=== PATIENT | male | born 2005 | race Two or more races ===

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

== ENCOUNTER 2024-09-09 10:07 | Emergency (ER) | payer SELFPAY ==
[~2024-09-09] VITALS: Ht 182.9 cm; Wt 133.6 kg
[~2024-09-09 10:07] MED LIST: IBUP-1454 PO; ONDA-144 PO
[2024-09-09] MEDS ORDERED: CEPH500C PO (10:40)
[2024-09-09 10:45] VITALS: BP 136/96; PULSE 83; RESP 16; TEMP 98.7; O2SAT 96
--- NOTE | 2024-09-09 10:49 | ED.PDOC ---
Musculoskeletal HPI Comments 18 y.o male presents to the ED for a chief complaint of right foot swelling associated with right sided calf cramping that started 2 days ago. Patient reports symptoms presented spontaneously without any recent injuries or trauma. Patient mentions being on his feet for long periods of time at work and believed it was due to his shoes. Patient denies any fever, open wounds, or abrasion to swelling or pain site. Patient denies any medical history or allergies. Chief Complaint: Lower Extremity Time Seen by MD: 10:37 Primary Care Provider: BARBER Romero Notes: Nurses Notes, Medications, Allergies Allergies: Coded Allergies: NO KNOWN ALLERGIES (Unverified , 05/18/18) Home Meds Active Scripts Cephalexin Monohydrate (Cephalexin) 500 Mg Cap, 1 CAP PO QID, #40 CAP Prov:NATE KAUFMAN MD 09/09/24 Ibuprofen (Ibuprofen) 600 Mg Tab, 600 MG PO Q6HP PRN, #24 TAB Prov:JOHN CLIFTON 08/27/21 Ondansetron (Zofran) 4 Mg Tab, 4 MG PO BID, #14 TAB Prov:JOHN CLIFTON 08/27/21 Information Source: Patient Mode of Arrival: Ambulatory Location: Right Extremity Location: Calf, Foot Timing: Days (2) Severity: Moderate Able to Move Extremity: Yes Bear Weight: Limited Pain: Moderate Mechanism: None Circumstances: Unknown Symptoms: Swelling, Pain, Erythema DVT Risk Factors: NONE Associated signs and symptoms: Swelling, Other (right calf pain ) Past Medical History PAST MEDICAL HISTORY: Denies Surgical History: Denies all surgeries Family History Family History: Family hx of DM Social History Smoker: Non-Smoker Alcohol: Denies ETOH Use Drugs: Denies Drug Use Lives In: Home Constitutional: denies: chills, diaphoresis, fatigue, fever, malaise, sweats, weakness, others EENTM: denies: blurred vision, double vision, ear bleeding, ear discharge, ear drainage, ear pain, ear ringing, eye pain, eye redness, hearing loss, mouth pain, mouth swelling, nasal discharge, nose bleeding, nose congestion, nose pain, photophobia, tearing, throat pain, throat swelling, voice changes, others Respiratory: denies: cough, hemoptysis, orthopnea, SOB at rest, shortness of breath, SOB with excertion, stridor, wheezing, others Cardiovascular: denies: chest pain, dizzy spells, diaphoresis, Dyspnea on exertion, edema, irregular heart beat, left arm pain, lightheadedness, palpitations, PND, syncope, others Gastrointestinal: denies: abdomen distended, abdominal pain, blood streaked bowels, constipated, diarrhea, dysphagia, difficulty swallowing, hematemesis, melena, nausea, poor appetite, poor fluid intake, rectal bleeding, rectal pain, vomiting, others Genitourinary: denies: burning, dysuria, flank pain, frequency, hematuria, incontinence, penile discharge, penile sore, pain, testicle pain, testicle swelling, urgency, others Neurological: denies: dizziness, fainting, headache, left sided numbness, left sided weakness, numbness, paresthesia, pre-existing deficit, right sided numbness, right sided weakness, seizure, speech problems, tingling, tremors, weakness, others Musculoskeletal: reports: others (right calf cramping. Right foot swelling ); denies: back pain, gout, joint pain, joint swelling, muscle pain, muscle stiffness, neck pain Integumetry: denies: bruises, change in color, change in hair/nails, dryness, laceration, lesions, lumps, rash, wounds, others Allergic/Immunocompromised: denies: Difficulty Healing, Frequent Infections, Hives, Itching, others Hematologic/Lymphatic: denies: anemia, blood clots, easy bleeding, easy bruising, swollen glands, others Endocrine: denies: excessive hunger, excessive sweating, excessive thirst, excessive urination, flushing, intolerance to cold, intolerance to heat, unexplained weight gain, unexplained weight loss, others Psychiatric: denies: anxiety, bipolar disorder, depression, hopeless, panic disorder, schizophrenia, sleepless, suicidal, others All Other Systems: Reviewed and Negative Physical Exam General Appearance: No Apparent Distress HEENT: Normal ENT Inspection, Pharynx Normal, TMs Normal Neck: Full Range of Motion, Non-Tender, Normal, Normal Inspection Respiratory: Chest Non-Tender, Lungs Clear, No Accessory Muscle Use, No Respiratory Distress, Normal Breath Sounds Cardiovascular: No Edema, No JVD, No Murmur, No Gallop, Normal Peripheral Pulses, Regular Rate/Rhythm Breast Exam: Deferred Gastrointestinal: No Organomegaly, Non Tender, No Pulsatile Mass, Normal Bowel Sounds, Soft Genitalia: Deferred Pelvic: Deferred Rectal: Deferred Extremities: No calf tenderness, Normal capillary refill, No pedal edema Musculoskeletal : Apperance: Normal Neurologic: Alert, permaculture designer II-XII nml as Tested, No Motor Deficits, Normal Affect, Normal Mood, No Sensory Deficits Cerebellar Function: Normal Reflexes: Normal Skin: Dry, Rash (Redness to the right foot consistent with possible cellulitis), Warm Lymphatic: No Adenopathy Was a procedure done? Was a procedure done?: No Differential Diagnosis EXT Differential Diagnosis: Cellulitis, Deep Vein Thrombosis, Sprain, Gout, Strain X-Ray, Labs, Meds, VS Vital Signs Date Time Temp Pulse Resp B/P (MAP) Pulse Ox O2 Delivery O2 Flow Rate FiO2 09/09/24 10:45 83 16 96 Room Air 09/09/24 10:45 98.7 83 16 136/96 (109) 96 98.7 09/09/24 10:16 98.2 94 18 150/87 (108) 96 98.2 Right lower extremity venous duplex Impression: 1. No right femoropopliteal venous thrombosis. The patient is being discharged with a diagnosis of right foot cellulitis The patient will return to the emergency department's condition worsens The patient was placed on Keflex for the infection The patient will follow up with his primary care doctor. Images Reviewed?: Images reviewed and evaluated by me Time of 1ST Reevaluation: 10:45 Reevaluation 1ST: Unchanged Patient Education/Counseling: Diagnosis, Treatment, Prognosis, Need For Follow Up Family Education/Counseling: No Family Present Departure 1 Departure Time of Disposition: 11:53 Impression: Primary Impression: Cellulitis of right foot Disposition: 01 HOME / SELF CARE / HOMELESS Condition: Fair e-Prescriptions Cephalexin Monohydrate (Cephalexin) 500 Mg Cap 1 CAP PO QID, #40 CAP Prov: NATE KAUFMAN MD 09/09/24 Discharged With: Self Critical Care Note Critical Care Time?: No Stability Stability form required: No I personally scribed for NATE KAUFMAN MD ([email or web address]) on 09/09/24 at 10:49. Electronically submitted by Janessa Bynum ([facility]). I personally scribed for NATE KAUFMAN MD ([email or web address]) on 09/09/24 at 11:32. Electronically submitted by Janessa Bynum ([facility]). NATE KAUFMAN MD September 09, 2024 10:49
--- NOTE | 2024-09-09 11:13 | DVH ---
Right lower extremity venous duplex Clinical History: swelling Comparison: None Technique: Duplex Doppler evaluation of the deep venous system of the right lower extremity from the common femo ral vein to the popliteal vein including color Doppler and spectral/pulsed waveform analysis was perf ormed. Findings: The common femoral vein demonstrates appropriate compressibility and waveform variability. There is compressibility/patency of the great saphenous vein at the proximal thigh. The femoral vein demonstrates appropriate compressibility and waveform variability. The deep femoral vein demonstrates appropriate compressibility and waveform variability. The popliteal vein demonstrates appropriate compressibility and waveform variability. There is normal compressibility at the tibioperoneal trunk. Impression: 1. No right femoropopliteal venous thrombosis.
== END 2024-09-09 12:20 | disposition home or self-care (01) ==
LOC: ER 10:07
DX: L03.115 Cellulitis of right lower limb (principal); Z79.899 Other long term (current) drug therapy
CPT/HCPCS: 93971

== ENCOUNTER 2024-12-11 08:15 | Emergency (ER) | payer MEDICAID, OTHER ==
[~2024-12-11] VITALS: Ht 182.9 cm; Wt 140.2 kg
[~2024-12-11 08:15] MED LIST changes: +CEPH500C PO
--- NOTE | 2024-12-11 08:34 | ED.PDOC ---
SOB-HPI HPI Comments This is a 19-year-old male who presents to the ED with a chief complaint of SOB with the associated nasal congestion, sore throat, cough, and head "pressure" as of last night. Patient reports taking NyQuil, with cough alleviated. Patient additionally reports that his daughter was sick x1 week ago with COVID. Patient denies any cardiac or respiratory PMHX. Patient has no further complaints at this time and otherwise denies further associated symptoms of chest pain, general weakness, nausea, vomiting, migraine, blurred vision, fever, or chills. Chief Complaint: Shortness of Breath Time Seen by MD: 08:26 Primary Care Provider: NONE Reviewed notes: Medications, Allergies Information Source: Patient Mode of Arrival: Ambulatory Severity: Moderate Timing: Days (X1) Duration: Since onset Context: At Rest, With Light Exertion, With Heavy Exertion PE Risk Factors: None History of: None Prehospital treatment: None Associated Signs and Symptoms: Cough, Nasal Congestion, Sore Throat Past Medical History PAST MEDICAL HISTORY: Denies Surgical History: Denies all surgeries Family History Family History: Family hx of DM Social History Smoker: Non-Smoker Alcohol: Denies ETOH Use Drugs: Denies Drug Use Lives In: Home Constitutional: denies: chills, diaphoresis, fatigue, fever, malaise, sweats, weakness, others EENTM: reports: nose congestion, throat pain, throat swelling; denies: blurred vision, double vision, ear bleeding, ear discharge, ear drainage, ear pain, ear ringing, eye pain, eye redness, hearing loss, mouth pain, mouth swelling, nasal discharge, nose bleeding, nose pain, photophobia, tearing, voice changes, others Respiratory: reports: cough, SOB at rest, shortness of breath, SOB with excertion; denies: hemoptysis, orthopnea, stridor, wheezing, others Cardiovascular: denies: chest pain, dizzy spells, diaphoresis, Dyspnea on exertion, edema, irregular heart beat, left arm pain, lightheadedness, palpitations, PND, syncope, others Gastrointestinal: denies: abdomen distended, abdominal pain, blood streaked bowels, constipated, diarrhea, dysphagia, difficulty swallowing, hematemesis, melena, nausea, poor appetite, poor fluid intake, rectal bleeding, rectal pain, vomiting, others Genitourinary: denies: burning, dysuria, flank pain, frequency, hematuria, incontinence, penile discharge, penile sore, pain, testicle pain, testicle swelling, urgency, others Neurological: denies: dizziness, fainting, headache, left sided numbness, left sided weakness, numbness, paresthesia, pre-existing deficit, right sided numbness, right sided weakness, seizure, speech problems, tingling, tremors, weakness, others Musculoskeletal: denies: back pain, gout, joint pain, joint swelling, muscle pa in, muscle stiffness, neck pain, others Integumetry: denies: bruises, change in color, change in hair/nails, dryness, laceration, lesions, lumps, rash, wounds, others Allergic/Immunocompromised: denies: Difficulty Healing, Frequent Infections, Hives, Itching, others Hematologic/Lymphatic: denies: anemia, blood clots, easy bleeding, easy bruising, swollen glands, others Endocrine: denies: excessive hunger, excessive sweating, excessive thirst, excessive urination, flushing, intolerance to cold, intolerance to heat, unexplained weight gain, unexplained weight loss, others Psychiatric: denies: anxiety, bipolar disorder, depression, hopeless, panic disorder, schizophrenia, sleepless, suicidal, others All Other Systems: Reviewed and Negative Physical Exam General Appearance: Mild Distress, Obese HEENT: Normal ENT Inspection, Pharynx Normal, Tonsillar Exudate (Left ), Other (Uvula Midline, with no airway obstruction ) Neck: Full Range of Motion, Non-Tender, Normal, Normal Inspection Respiratory: Chest Non-Tender, Lungs Clear, No Accessory Muscle Use, No Respiratory Distress, Normal Breath Sounds Cardiovascular: No Edema, No JVD, No Murmur, No Gallop, Normal Peripheral Pulses, Regular Rate/Rhythm Breast Exam: Deferred Gastrointestinal: No Organomegaly, Non Tender, No Pulsatile Mass, Normal Bowel Sounds, Soft Genitalia: Deferred Pelvic: Deferred Rectal: Deferred Extremities: No calf tenderness, Normal capillary refill, Normal inspection, Normal range of motion, Non-tender, No pedal edema Musculoskeletal : Apperance: Normal Neurologic: Alert, floor sweeper II-XII nml as Tested, No Motor Deficits, Normal Affect, Normal Mood, No Sensory Deficits Cerebellar Function: Normal Reflexes: Normal Skin: Dry, Normal Color, Warm Lymphatic: No Adenopathy Was a procedure done? Was a procedure done?: No Differential Dx Differential Diagnosis: Anxiety, Asthma, Pneumonia, Sinusitis, Allergic Rhinitis, Pharyngitis X-Ray, Labs, Meds, VS Vital Signs Date Time Temp Pulse Resp B/P (MAP) Pulse Ox O2 Delivery O2 Flow Rate FiO2 12/11/24 11:33 98.2 78 16 137/82 (100) 98 98.2 12/11/24 11:33 78 16 98 Room Air 12/11/24 08:20 20 95 Room Air* 0 21 12/11/24 08:16 98.5 118 20 182/85 95 98.5 Lab Test 12/11/24 08:32 Range/Units SARS-CoV-2 Antigen (Rapid) Positive *A NEGATIVE Group A Streptococcus Rapid Negative Current Medications Medications (Trade) Dose Ordered Sig/Sajan Route Start Time Stop Time Status Last Admin Dexamethasone Sodium Phosphate (Decadron Injection) 16 mg ONCE ONCE IM 12/11/24 08:30 12/11/24 08:31 DC 12/11/24 08:39 [place] [address] [phone] DIAGNOSTIC IMAGING Diagnostic Imaging Report : [id number] Signed PATIENT: NGUYEN PERALTA RACCT: [id number] UNIT: [id number] : 2005 LOC: ER ROOM / BED: / AGE / SEX: 19 / M ADM STATUS: REG ER SERVICE 6 ORDERING PHYSICIAN: KALEE MCKEON NP PROCEDURE(s): CXR2 - CHEST TWO VIEWS ROUTINE REASON: cough ORDER NUMBER(s): [id number], ACCESSION NUMBER(s): [id number] CLINICAL INFORMATION: 19 years old, Male; cough. TECHNIQUE: Frontal and lateral chest radiographs were obtained. COMPARISON: None FINDINGS: Lungs: Clear. Cardiac: Heart size is within normal limits. Pulmonary vasculature: Unremarkable Mediastinum/ana maría: Within normal limits. Bones: No evidence of acute osseous abnormality. Other: No other significant finding. IMPRESSION: No evidence of acute disease in the chest. X-Ray, Labs, Meds, VS Comment This is a 19-year-old male who presents to the ED with a chief complaint of SOB with the associated nasal congestion, sore throat, cough, and head "pressure" as of last night. Patient arrives alert and oriented, ABC's intact, afebrile, vital signs stable, saturating well in room air Peripheral IV insertion+ labs were ordered. Rapid Strep Throat and COVID screening were ordered. Diagnostic imaging, Chest XRAY, ordered by me and results interpreted by rad iology : Showed no abnormalities. History, physical exam, and testing consistent of COVID-19 Patient does not high risk, vital signs stable Able to ambulate on room air with O2 greater than 96% Denies chest pain shortness of breath fevers chills nausea vomiting diarrhea No respiratory distress no hypoxia Counseled about self-isolation and self quarantine for 5 days Recommended patient to refer to [facility] webpage for up-to-date information regarding COVID-19 and current social distancing, treating and screening guidelines as these are constantly updating Stressed importance of handwashing and social distancing given the need to reduce exposure and spread of self to other Morning of the likelihood of asymptomatic persons leading to spread of disease. Explained that persons greater than 50 years of age with patients with pre- existing conditions are at greatest risk Patient was given: Decadron Injection 16MG. Tolerated medications with no adverse reaction. On reevaluation, patient had symptomatic improvement. Patient is stable for discharge at this time. External notes reviewed. Test results and diagnostic imaging interpreted. All diagnostic findings, discharge care, education and instructions provided Follow-up with PCP in 2 to 3 days Patient verbalized understanding and agreed to treatment plan Vital signs stable, afebrile, no acute distress noted Patient ambulatory with strong steady gait Advised to return precautions for any new or worsening symptoms, return to ER immediately for re-evaluation Patient is aware that the purpose of this visit was for an acute medical emergency requiring emergent stabilization. Chronic conditions, including malignancies have not been ruled out. Patient is instructed to follow up with PCP as directed and discharge instructions for continued care and workup. If unable to arrange follow-up, patient is to return to the emergency department for reassessment. Patient (parent or legal guardian if applicable) was given verbal and written discharge instructions and acknowledges understanding. Additional MDM Review of External, Non-ED records: External records reviewed. Discussion with independent historian (EMS, family) history obtained from the patient/parents (if applicable) at bedside Chronic conditions affecting care: None Social determinants of health affecting care: None Consideration of admission (observation or admission): I considered escalation of care to admission for this patient, however given the reassuring workup, the patient is safe for outpatient management. Discussion with the Radiology: No Tests considered but not performed: Prescription medication considered but not given: 12 lead EKG interpretation: Time of 1ST Reevaluation: 09:15 Reevaluation 1ST: Unchanged Patient Education/Counseling: Diagnosis, Treatment, Need For Follow Up Family Education/Counseling: No Family Present Medical Screening: No EMC Exist At This Time SEPSIS Sepsis Screen Date sepsis recognized/suspect: Dec 11, 2024 Time Sepsis recognized/suspect: 815 Recent Procedure: No On Antibiotic Therapy: No Respiratory Rate >20: No Heart Rate >90: Yes Temp<36 C (96.8 F) or >38.3 C: No SBP <90 or MAP <65 mmHG: No New Acute Mental Status Change: No Is the patient on CPAP, BIPAP,: No Physician Orders Chest Two Views Routine (12/11/24 08:27) Vital Signs Date Time Temp Pulse Resp B/P (MAP) Pulse Ox O2 Delivery O2 Flow Rate FiO2 12/11/24 11:33 98.2 78 16 137/82 (100) 98 98.2 12/11/24 11:33 78 16 98 Room Air 12/11/24 08:20 20 95 Room Air* 0 21 12/11/24 08:16 98.5 118 20 182/85 95 98.5 Medications Medications Dose Ordered Sig/Sajan Route Start Time Stop Time Status Last Admin Dose Admin Dexamethasone Sodium Phosphate 16 mg ONCE ONCE IM 12/11/24 08:30 12/11/24 08:31 DC 12/11/24 08:39 Departure 1 Departure Time of Disposition: 11:18 Impression: Primary Impression: COVID Disposition: 01 HOME / SELF CARE / HOMELESS Condition: Stable Additional Instructions: Follow up with PCP in 1-2 days. Take medications as prescribed. Return to the ED for any new or worsening symptoms. Discharged With: Self Critical Care Note Critical Care Time?: No Stability Stability form required: No Heart Score Heart Score: Heart Score Response (Comments) Value History N/A 0 EKG N/A 0 Age N/A 0 Risk Factors N/A 0 Troponin N/A 0 Total 0 I personally scribed for KALEE MCKEON NP ([email or web address]) on 12/11/24 at 08:34. Electronically submitted by Emma Robles ([employer]). I personally scribed for KALEE MCKEON ELECTRICAL AND INSTRUMENTATION MECHANIC ([email or web address]) on 12/11/24 at 08:37. Electronically submitted by Emma Robles ([employer]). I personally scribed for KALEE MCKEON ELECTRICAL AND INSTRUMENTATION MECHANIC ([email or web address]) on 12/11/24 at 08:37. Electronically submitted by Emma Robles ([employer]). I personally scribed for KALEE MCKEON ELECTRICAL AND INSTRUMENTATION MECHANIC ([email or web address]) on 12/11/24 at 09:06. Electronically submitted by Emma Robles ([employer]). KALEE MCKEON NP Dec 11, 2024 08:34
--- NOTE | 2024-12-11 08:55 | DVH ---
CLINICAL INFORMATION: 19 years old, Male; cough. TECHNIQUE: Frontal and lateral chest radiographs were obtained. COMPARISON: None FINDINGS: Lungs: Clear. Cardiac: Heart size is within normal limits. Pulmonary vasculature: Unremarkable Mediastinum/ana maría: Within normal limits. Bones: No evidence of acute osseous abnormality. Other: No other significant finding. IMPRESSION: No evidence of acute disease in the chest.
[2024-12-11 10:37] LABS: Rapid Strep A Screen-Throat Negative
[2024-12-11 10:49] LABS: COVID19 ANTIGEN SOFIA FIA POSITIVE (NEGATIVE)
[2024-12-11 11:33] VITALS: BP 137/82; PULSE 78; RESP 16; TEMP 98.2; O2SAT 98
== END 2024-12-11 11:35 | disposition home or self-care (01) ==
LOC: ER 08:15
DX: U07.1 COVID-19 (principal)
CPT/HCPCS: 36415; 71046; 87070; 87426; 87880; 96372; 99284; J1100